=== PATIENT | female | born 1975 | race Caucasian/White ===

== ENCOUNTER → 2016-02-22 | Outpatient (CLI) | payer MEDICAID ==
[~2016-02-22] MED LIST: BENADRYL 25MG C25 MG PO; ESTRADIOL1 MG PO; FLEXERIL10 MG PO; GABAPENTIN800 MG PO; HYDROCODONE-APA1 TA2 PO; KLONOPIN 0.5MG0.5 MG NG; LEVOTHYROXINE0.05 MG NG; MECLIZINE HYDRO25 MG PO; MECLIZINE25 MG PO; NAPROSYN 500MG500 MG PO; NEURONTIN 300M300 MG PO; NEURONTIN800 MG PO; OPANA ER20 MG PO; OXYCODONE HYDROC5 MG PO; Oxycodone5 MG NG; PERCOCET 10 MG1 EACH PO; PERCOCET 325 MG1 TA3 PO; PRILOSEC OTC20 MG PO; PROTONIX40 MG PO; PROZAC 20MG CAP20 MG PO; SEPTRA DS 800 M1 TAB PO; STOOL SOFTENER100 MG PO; TESSALON PERLE100 MG PO; VICODIN 5/500 T1 TAB PO
[2016-02-22 18:16] LABS: AMPHETAMINES/METAMPHETAMINES NEGATIVE ng/mL (<1000)
== END ==
LOC: LAB 17:33
PROVIDERS: Physician Assistant
DX: Z79.899 Other long term (current) drug therapy (principal)
CPT/HCPCS: G0480